=== PATIENT | female | born 1945 | race Caucasian/White ===

== ENCOUNTER → 2017-04-24 | Outpatient (CLI) | payer MEDICARE ==
--- NOTE | 2017-04-25 07:32 | RADIOLOGY REPORT PS360 ---
[facility] HEPATOBILIARY SCAN HISTORY: Right upper quadrant pain, pain in shoulder blade with tenderness and nausea ABDOMINAL PAIN ORDERING PHYSICIAN: Vianca Hogue MD PATIENT AGE: 72 years COMPARISON: Ultrasound 11/06/2016 DOSE: 8.5 mCi technetium Choletec IV. Ensure was used as a fatty meal. No pain after fatty meal. FINDINGS: Homogeneous activity is present within the hepatic parenchyma. Activity is present in the gallbladder by 5 minutes. Activity is present in the small bowel by 15 minutes. The gallbladder ejection fraction is calculated to be 91% The patient did not report pain or other symptoms during the fatty meal ingestion. IMPRESSION: Unremarkable hepatobiliary scan and gallbladder ejection fraction. No evidence of common or cystic duct obstruction with normal gallbladder ejection fraction
== END ==
LOC: RAD 09:57
DX: R10.11 Right upper quadrant pain (principal)
CPT/HCPCS: A9537

== ENCOUNTER → 2017-06-04 | Outpatient (CLI) | payer MEDICARE ==
--- NOTE | 2017-06-04 15:20 | RADIOLOGY REPORT PS360 ---
HIP RT 2-3V W/PELVIS IF PERFOR HISTORY: Right hip pain RT HAMSTRING INJURY ORDERING PHYSICIAN: Vianca Hogue MD PATIENT AGE: 72 years COMPARISON: None FINDINGS: No fracture or dislocation is evident. Minimal spurring is noted along the inferior aspect of acetabulum on both sides on 4. Vascular calcifications present. IMPRESSION: Mild osteoarthritic change of the hips
== END ==
LOC: RAD 14:29
DX: S76.301D Unspecified injury of muscle, fascia and tendon of the posterior muscle group at thigh level, right thigh, subsequent encounter (principal)